=== PATIENT | female | born 2000 | race Native Hawaiian/Other Pacific Islander ===

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

== ENCOUNTER 2018-03-07 21:52 | Emergency (ER) | payer BC ==
[~2018-03-07] VITALS: Ht 160 cm; Wt 92.1 kg
[2018-03-07 22:58] LABS: PLATELET COUNT 278 K/uL (152-353)
[2018-03-07 23:01] LABS: POTASSIUM 3.6 mmol/L (3.6-5.2)
[2018-03-08 02:20] VITALS: BP 100/59; TEMP 98.6
== END 2018-03-08 02:20 | disposition home or self-care (01) ==
LOC: ED 21:52
DX: R10.11 Right upper quadrant pain (principal)
CPT/HCPCS: 80053; 81000; 81025; 82150; 83690; 85027; 96360; 96374; 96375; 99284; J1885; J2175; J2405; J2550; J7120; Q9963

== ENCOUNTER 2018-08-26 07:45 | Emergency (ER) | payer BC ==
[~2018-08-26] VITALS: Ht 160 cm; Wt 83.9 kg
[2018-08-26 07:52] VITALS: TEMP 97.5
[2018-08-26 08:29] LABS: PLATELET COUNT 298 K/uL (152-353)
[2018-08-26 08:48] LABS: POTASSIUM 3.4 mmol/L (3.6-5.2)
[2018-08-26 11:00] VITALS: BP 128/68
== END 2018-08-26 12:46 | disposition short-term general hospital (02) ==
LOC: ED 07:45
PROVIDERS: Emergency Medicine
DX: K81.0 Acute cholecystitis (principal)
CPT/HCPCS: 36415; 74022; 80053; 81000; 82150; 83690; 84702; 85027; 96361; 96365; 96374; 96375; 96376; 99284; J1170; J1200; J2405; J2550